=== PATIENT | male | born 1990 | race African-American/Black ===

== ENCOUNTER 2021-08-13 00:32 | Emergency (ER) | payer OTHER, MEDICAID ==
[~2021-08-13] VITALS: Ht 172.7 cm; Wt 100.0 kg
[2021-08-13 00:36] VITALS: BP 147/92
[2021-08-13] MEDS ORDERED: ACETAMINOPHEN 325MG TABLET PO ONE (02:00)
== END 2021-08-13 06:31 | disposition home or self-care (01) ==
LOC: ER 00:32
DX: S06.0X9A Concussion with loss of consciousness of unspecified duration, initial encounter (principal); F17.200 Nicotine dependence, unspecified, uncomplicated; F12.10 Cannabis abuse, uncomplicated; I49.9 Cardiac arrhythmia, unspecified; Y04.0XXA Assault by unarmed brawl or fight, initial encounter; Y93.89 Activity, other specified; Y92.89 Other specified places as the place of occurrence of the external cause; Y99.8 Other external cause status
CPT/HCPCS: 70486; 93005; 99285